=== PATIENT | male | born 1990 | race Asian ===

== ENCOUNTER → 2020-07-07 | Outpatient (CLI) | payer OTHER ==
[2020-07-07 11:41] LABS: BASOPHIL % 0.8 % (0.2-1.5); PLATELET COUNT 322 x10^3mcL (152-348); RED CELL DISTRIBUTION WIDTH 13.4 % (12.1-16.2)
[2020-07-07 12:30] LABS: ALBUMIN 4.3 g/dL (3.4-5.0); ALKALINE PHOSPHATASE 60 U/L (46-116); ALT/SGPT 61 U/L (16-63); AST/SGOT 28 U/L (15-37); BILIRUBIN DIRECT 0.14 mg/dL (0.0-0.2); BILIRUBIN TOTAL 0.71 mg/dL (0.20-1.00); CALCIUM 9.1 mg/dL (8.5-10.1); CARBON DIOXIDE 24.8 mmol/L (21-32); CHOLESTEROL 252 mg/dL (<200); CHOLESTEROL/HDL RATIO 4.6; CREATININE SERUM 1.1 mg/dL (0.7-1.3); GFR1 > 60 mL/min; GLUCOSE SERUM 193 mg/dL (74-106); HDL CHOLESTEROL 55 mg/dL (40-60); TRIGLYCERIDES 111 mg/dL (<150)
[2020-07-07 13:19] LABS: CHLORIDE SERUM 102 mmol/L (98-107); POTASSIUM SERUM 4.2 mmol/L (3.5-5.1); SODIUM SERUM 139 mmol/L (136-145)
[2020-07-08 09:07] LABS: microalbumin:creatinine ratio 3 (0-29)
== END | disposition home or self-care (01) ==
LOC: LB 11:12
PROVIDERS: ATTEND Internal Medicine
DX: Z00.00 Encounter for general adult medical examination without abnormal findings (principal)